=== PATIENT | female | born 1965 | race Two or more races ===

== ENCOUNTER → 2017-10-07 | Emergency (ER) | payer OTHER ==
[~2017-10-07] VITALS: Ht 157.5 cm; Wt 49.0 kg
[~2017-10-07] MED LIST: AMBIEN10 MG; ATACAND16 MG; ATACAND4 MG PO; CAMBIA50 MG; DORZOLAMIDE-TIM10 ML; KETO10TA2 PO; MEDROLPACK PO; NORFLEX100MG; PERCOCET 5-3251 EACH PO; SKELAXIN800 MG PO; SYNTHROID75 MCG; ZOCOR20 MG PO
== END | disposition home or self-care (01) ==
LOC: ER 08:03
DX: M54.5 Low back pain (principal)

== ENCOUNTER 2020-01-25 02:34 | Emergency (ER) | payer OTHER ==
[~2020-01-25] VITALS: Ht 160 cm; Wt 56.7 kg
[2020-01-25] MEDS ORDERED: SYNTHROID50 MCG (02:49)
[2020-01-25] MEDS ORDERED: LIPITOR20 MG PO (02:50)
[2020-01-25] MEDS ORDERED: MICARDIS40 MG (02:51)
[2020-01-25] MEDS ORDERED: NAPR500T14 (02:52)
[2020-01-25] MEDS ORDERED: NORFLEX PO (02:55)
== END 2020-01-25 04:40 | disposition home or self-care (01) ==
LOC: ER 02:34
DX: M54.2 Cervicalgia (principal); M62.838 Other muscle spasm; I10 Essential (primary) hypertension

== ENCOUNTER 2022-04-02 07:39 | Outpatient (CLI) | payer OTHER ==
[~2022-04-02 07:39] MED LIST changes: +LIPITOR20 MG PO; +MICARDIS40 MG; +NAPR500T14; +NORFLEX PO; +SYNTHROID50 MCG
== END 2022-04-02 07:42 | disposition home or self-care (01) ==
LOC: NUCLEAR 07:39
PROVIDERS: ATTEND Internal Medicine Cardiovascular Disease
DX: I83.813 Varicose veins of bilateral lower extremities with pain (principal)

== ENCOUNTER 2022-07-27 07:15 | Outpatient (CLI) | payer OTHER | END 2022-07-27 07:26 | disposition home or self-care (01) | LOC: TOM 07:15 | PROVIDERS: ATTEND Internal Medicine Gastroenterology | DX: Z12.11 Encounter for screening for malignant neoplasm of colon (principal); K59.04 Chronic idiopathic constipation; K57.30 Diverticulosis of large intestine without perforation or abscess without bleeding ==

== ENCOUNTER 2024-06-28 13:50 | Outpatient (CLI) | payer OTHER | END 2024-06-28 13:57 | disposition home or self-care (01) | LOC: MAMO-SONO 13:50 | PROVIDERS: ATTEND Obstetrics & Gynecology | DX: N64.4 Mastodynia (principal); Z12.31 Encounter for screening mammogram for malignant neoplasm of breast; Z12.39 Encounter for other screening for malignant neoplasm of breast ==

== ENCOUNTER 2025-01-26 07:25 | Outpatient (CLI) | payer OTHER | END 2025-01-26 07:27 | disposition home or self-care (01) | LOC: NUCLEAR 07:25 | PROVIDERS: ATTEND Internal Medicine | DX: I20.9 Angina pectoris, unspecified (principal) ==

== ENCOUNTER 2025-07-05 10:48 | Outpatient (CLI) | payer OTHER | END 2025-07-05 10:56 | disposition home or self-care (01) | LOC: MAMO-SONO 10:48 | PROVIDERS: ATTEND General Practice | DX: N94.4 Primary dysmenorrhea (principal); Z12.31 Encounter for screening mammogram for malignant neoplasm of breast ==